=== PATIENT | female | born 1960 | race Caucasian/White ===

== ENCOUNTER 2024-06-26 19:00 | Observation (INO) | payer MEDICAID ==
[2024-06-26] MEDS ORDERED: Acetaminophen 325 MG Tab PO PRN (21:52)
[2024-06-26] MEDS ORDERED: Ondansetron 4 MG Tab.DIS PO PRN (21:52)
[2024-06-26] MEDS ORDERED: LORazepam 0.5 MG Tab PO PRN (21:52)
[2024-06-26] MEDS ORDERED: Sodium Chloride 0.9% 10 ML Syringe FLUSH PRN (21:52)
[2024-06-26] MEDS ORDERED: Ondansetron 4 MG/2 ML SDV IV PRN (21:52)
[2024-06-26] MEDS ORDERED: cloNIDine 0.1 MG Tab PO PRN (22:03)
[2024-06-27 07:32] LABS: BASOPHILS ABSOLUTE AUTO 0.07 10^3/uL (0.00-0.50); BASOPHILS PERCENT AUTO 0.9 % (0-1); EOSINOPHILS ABSOLUTE AUTO 0.14 10^3/uL (0.00-1.50); EOSINOPHILS PERCENT AUTO 1.9 % (0-6); HEMATOCRIT 31.9 % (37.0-47.0); HEMOGLOBIN 10.2 g/dL (12.0-16.0); IMMATURE GRAN ABSOLUTE AUTO 0.01 10^3/uL (0.00-0.49); IMMATURE GRAN PERCENT AUTO 0.1 % (0.0-4.9); LYMPHOCYTES PERCENT AUTO 27.1 % (24-44); MEAN CORPUSCULAR HEMOGLOBIN 28.1 pg (27.0-32.0); MEAN CORPUSCULAR VOLUME 87.9 fL (83.0-97.0); MONOCYTES ABSOLUTE AUTO 0.87 10^3/uL (0.00-1.50); MONOCYTES PERCENT AUTO 11.8 % (0-10); NEUTROPHILS ABSOLUTE AUTO 4.29 x10^3/uL (1.80-8.00); NEUTROPHILS PERCENT AUTO 58.2 % (41-71); PLATELET COUNT,PLT 264 10^3/uL (150-400); RED BLOOD CELL COUNT 3.63 x10^6/uL (4.00-5.50); WHITE BLOOD CELL COUNT,WBC 7.4 10^3/uL (4.0-11.0)
[2024-06-27 07:36] LABS: ALBUMIN 2.6 g/dL (3.4-5.0); CALCIUM 8.7 mg/dL (8.4-10.1); CREATININE 1.5 mg/dL (0.6-1.0); EST CRCL DRUG DOSING (CG) 34.99 mL/min; POTASSIUM,K 3.5 mEq/L (3.5-5.0); PROTEIN TOTAL,TP 6.4 g/dL (6.4-8.2)
[2024-06-27 07:37] LABS: BILIRUBIN TOTAL 0.5 mg/dL (0.0-1.0); MAGNESIUM 1.6 mg/dL (1.8-2.4)
[2024-06-27] MEDS: Losartan 25 MG Tab PO SCH (07:56)
[2024-06-27] MEDS: Magnesium Oxide 400 MG Tab PO ONE (10:31)
[2024-06-27] MEDS ORDERED: Enoxaparin 40 MG/0.4 ML Syringe SUBCUT SCH (20:00)
== END 2024-06-27 10:45 | disposition home or self-care (01) ==
LOC: UNDOADMOB 19:00 → CC.MS 19:00
PROVIDERS: ADMIT Nurse Practitioner Family; ATTEND Nurse Practitioner Family
DX: R42 Dizziness and giddiness (principal); I10 Essential (primary) hypertension; F10.29 Alcohol dependence with unspecified alcohol-induced disorder; E83.42 Hypomagnesemia; F17.210 Nicotine dependence, cigarettes, uncomplicated; Z79.899 Other long term (current) drug therapy
CPT/HCPCS: 36415; 80053; 83735; 85025; 97161-GP; 99223; 99238; A9270-GY; G0378; G0379